=== PATIENT | female | born 1945 | race Caucasian/White ===

== ENCOUNTER 2025-06-07 17:41 | Inpatient (IN) | payer BC, MEDICARE ==
[2025-06-07] MEDS ORDERED: Naloxone 0.4 MG/ML SDV IVPUSH PRN ×3 (18:33→20:34)
[2025-06-07] MEDS: fentaNYL 50 MCG/ML SDV IVPUSH ONE ×2 (19:18→20:46)
[2025-06-07 20:06] LABS: BASOPHILS ABSOLUTE AUTO 0.08 K/uL (0.00-0.10); BASOPHILS PERCENT AUTO 0.5 % (0.1-1.3); EOSINOPHILS ABSOLUTE AUTO 0.10 K/uL (0.00-0.40); EOSINOPHILS PERCENT AUTO 0.6 % (0.0-5.4); IMMATURE GRAN ABSOLUTE AUTO 0.08 K/uL (0.00-0.23); IMMATURE GRAN PERCENT AUTO 0.5 % (0.0-0.7); LYMPHOCYTES ABSOLUTE AUTO 1.26 K/uL (0.8-3.3); LYMPHOCYTES PERCENT AUTO 7.9 % (11.4-47.7); MONOCYTES ABSOLUTE AUTO 0.83 K/uL (0.20-0.90); MONOCYTES PERCENT AUTO 5.2 % (3.3-12.6); NEUTROPHILS ABSOLUTE AUTO 13.55 K/uL (1.0-7.6); NEUTROPHILS PERCENT AUTO 85.3 % (40.0-78.1); PLATELET COUNT,PLT 203 K/uL (130-375); RED BLOOD CELL COUNT 4.82 M/uL (3.77-5.24); WHITE BLOOD CELL COUNT,WBC 15.9 K/uL (3.2-11.0)
[2025-06-07 20:27] LABS: A/G RATIO 1.2 (1.2-2.2); ALANINE AMINOTRANSFERASE,ALT 30 U/L (12-78); ASPARTATE AMNIOTRANSFERASE,AST 27 U/L (15-37); BILIRUBIN TOTAL 0.7 mg/dL (0.2-1.0); BLOOD UREA NITROGEN,BUN 22 mg/dL (7-18); CARBON DIOXIDE,CO2 29 mmol/L (21-32); CHLORIDE,CL 105 mmol/L (100-108); CREATININE 1.0 mg/dL (0.6-1.0); EST CRCL DRUG DOSING (CG) 36.50 mL/min; ESTIMATED GFR 57 mL/min (>60); GLUCOSE RANDOM 127 mg/dL (74-106); POTASSIUM,K 4.4 mmol/L (3.6-5.2); PROTEIN TOTAL,TP 7.2 g/dL (6.4-8.2); SODIUM,NA 142 mmol/L (140-148)
[2025-06-07] MEDS ORDERED: Ondansetron 4 MG Tab.DIS PO PRN (20:34)
[2025-06-07] MEDS ORDERED: fentaNYL 100 MCG/2 ML SDV IVPUSH PRN (20:34)
[2025-06-07] MEDS: fentaNYL 50 MCG/ML SDV IVPUSH STA (20:42)
[2025-06-07] MEDS: Ondansetron 4 MG/2 ML SDV IV PRN (21:35)
[2025-06-08] MEDS: fentaNYL 50 MCG/ML SDV IVPUSH PRN (12:21)
[2025-06-08] MEDS ORDERED: fentaNYL 100 MCG/2 ML SDV ONE (13:08)
[2025-06-08] MEDS ORDERED: Propofol 200 MG/20 ML SDV ONE (13:08)
[2025-06-08] MEDS ORDERED: Midazolam 1 MG/ML 2 ML SDV ONE ×2 (13:08→14:03)
[2025-06-08] MEDS ORDERED: ePHEDrine 50 MG/ML SDV ONE (13:49)
[2025-06-08] MEDS ORDERED: Phenylephrine 1% 10 MG/ML SDV ONE (14:06)
[2025-06-09] MEDS: Benzocaine/Cetylpyridinium/Menthol Lozenge MUCMEM PRN (02:24)
[2025-06-09] MEDS: Aspirin 325 MG Tab.EC PO SCH (09:47)
[2025-06-09 19:04] LABS: BASOPHILS ABSOLUTE AUTO 0.08 K/uL (0.00-0.10); BASOPHILS PERCENT AUTO 0.8 % (0.1-1.3); EOSINOPHILS ABSOLUTE AUTO 0.18 K/uL (0.00-0.40); EOSINOPHILS PERCENT AUTO 1.7 % (0.0-5.4); IMMATURE GRAN ABSOLUTE AUTO 0.04 K/uL (0.00-0.23); IMMATURE GRAN PERCENT AUTO 0.4 % (0.0-0.7); LYMPHOCYTES ABSOLUTE AUTO 1.04 K/uL (0.8-3.3); LYMPHOCYTES PERCENT AUTO 9.8 % (11.4-47.7); MONOCYTES ABSOLUTE AUTO 0.88 K/uL (0.20-0.90); MONOCYTES PERCENT AUTO 8.3 % (3.3-12.6); NEUTROPHILS ABSOLUTE AUTO 8.44 K/uL (1.0-7.6); NEUTROPHILS PERCENT AUTO 79.0 % (40.0-78.1); PLATELET COUNT,PLT 126 K/uL (130-375); RED BLOOD CELL COUNT 3.95 M/uL (3.77-5.24); WHITE BLOOD CELL COUNT,WBC 10.7 K/uL (3.2-11.0)
[2025-06-09 19:17] LABS: BLOOD UREA NITROGEN,BUN 15.0 mg/dL (7-18); CARBON DIOXIDE,CO2 25.0 mmol/L (21-32); CHLORIDE,CL 108.0 mmol/L (100-108); CREATININE 0.8 mg/dL (0.6-1.0); EST CRCL DRUG DOSING (CG) 45.62 mL/min; ESTIMATED GFR 74.0 mL/min (>60); GLUCOSE RANDOM 116.0 mg/dL (74-106); POTASSIUM,K 4.2 mmol/L (3.6-5.2); SODIUM,NA 141.0 mmol/L (140-148)
[2025-06-10] MEDS: Sennosides/Docusate Sodium 50-8.6 MG Tab PO PRN (08:19)
== END 2025-06-11 13:00 | DRG 522 ==
LOC: JP.ED 17:41 → JP.MS 20:03
PROVIDERS: ADMIT Registered Nurse; ATTEND Student in an Organized Health Care Education/Training Program
PROC: 0SRS0JA Replacement of Left Hip Joint, Femoral Surface with Synthetic Substitute, Uncemented, Open Approach (ICD-10-PCS; principal; 2025-06-07)
DX: S72.002A Fracture of unspecified part of neck of left femur, initial encounter for closed fracture (principal); N18.9 Chronic kidney disease, unspecified; K21.9 Gastro-esophageal reflux disease without esophagitis; Z91.048 Other nonmedicinal substance allergy status; W18.30XA Fall on same level, unspecified, initial encounter; Z85.01 Personal history of malignant neoplasm of esophagus; Z90.49 Acquired absence of other specified parts of digestive tract; Z98.890 Other specified postprocedural states; Z79.899 Other long term (current) drug therapy
CPT/HCPCS: 36415; 72170; 72170-26; 73502-26-LT; 73502-LT; 80048; 80053; 85018; 85025; 93005; 93010; 96374; 97110-GP; 97116-GP; 97161-GP; 97165-GO; 97530-GP; 97535-GO; 99223; 99231; 99232; 99238; 99284; 99285-25; A9270-GY; C1776; J0665; J0690; J2250; J2371; J2405; J2470; J2704; J3010; J3490; J7030; J7040